=== PATIENT | male | born 1995 | race Caucasian/White ===

== ENCOUNTER 2021-09-26 20:08 | Emergency (ER) | payer MEDICAID, OTHER ==
[~2021-09-26] VITALS: Ht 185.4 cm; Wt 111.1 kg
[2021-09-26] MEDS ORDERED: SODIUM CHLORIDE 0.9% 1,000 ML IV ONE (21:00)
[2021-09-26 21:19] LABS: HEMATOCRIT. 50.5 % (42.0-52.0); HEMOGLOBIN. 17.4 g/dL (14.0-18.0); MEAN CORPUSCULAR HEMOGLOBIN 30.7 pg (28.0-32.0); MEAN CORPUSCULAR VOLUME 89.3 fL (80.0-94.0); MEAN PLATELET VOLUME 8.9 fl (7.4-10.4); PLATELET 185 x1000/uL (130-400); RED BLOOD CELL COUNT 5.66 mill/uL (4.7-6.1); RED CELL DISTRIBUTION WIDTH 13.3 % (11.6-14.6)
[2021-09-26 21:22] LABS: CHLORIDE 104 mEq/L (98-107)
[2021-09-26 21:49] LABS: PLATELET ESTIMATE NORMAL
[2021-09-26 22:13] VITALS: BP 130/85
== END 2021-09-26 22:14 | disposition home or self-care (01) ==
LOC: ER 20:08
DX: R55 Syncope and collapse (principal); S00.81XA Abrasion of other part of head, initial encounter; R94.31 Abnormal electrocardiogram [ECG] [EKG]; D72.829 Elevated white blood cell count, unspecified; W10.8XXA Fall (on) (from) other stairs and steps, initial encounter; Y93.02 Activity, running; Y92.89 Other specified places as the place of occurrence of the external cause
CPT/HCPCS: 36415; 70450; 80053; 84484; 85025; 93005; 99285; J7030